=== PATIENT | male | born 1975 | race Two or more races ===

== ENCOUNTER 2017-01-22 09:47 | Emergency (ER) | payer OTHER ==
[~2017-01-22] VITALS: Ht 172.7 cm; Wt 79.4 kg
[2017-01-22 10:02] VITALS: BP 115/75
[2017-01-22] MEDS ORDERED: IBUPROFEN 400 MG TABLET ONE (10:56)
[2017-01-22] MEDS ORDERED: IBUPROFEN 400 MG TABLET PO ONE (11:00)
== END 2017-01-22 12:23 ==
LOC: ER 09:50
DX: S60.021A Contusion of right index finger without damage to nail, initial encounter (principal); S00.83XA Contusion of other part of head, initial encounter; V43.52XA Car driver injured in collision with other type car in traffic accident, initial encounter; Y92.488 Other paved roadways as the place of occurrence of the external cause; Y93.89 Activity, other specified; Y99.8 Other external cause status
CPT/HCPCS: 29130; 70486; 73140; 99284; A4606; Z7610